=== PATIENT | male | born 1950 | race Caucasian/White ===

== ENCOUNTER → 2019-07-01 | Outpatient (CLI) | payer OTHER, MEDICARE ==
[~2019-07-01] MED LIST: ADULT LOW DOSE81 MG PO; AMITRIPTYLINE H10 M1 PO; CALCIUM 600 +1 EAC5 PO; CHLORTHALIDONE25 MG PO; CRESTOR20 MG PO; DOXYCYCLINE 10100 M1 PO; FINASTERIDE5 MG PO; FISH OIL 1,0001 EAC5 PO; GLUCOPHAGE1000 MG PO; GUAIFENESIN/COD10 M1 PO; HYDROCHLOROTHIA25 M2 PO; LEVOTHYROXIN0.137 M1 PO; LISINOPRIL20 MG PO; MAGNESIUM400 MG PO; NORCO 5-325 TA1 EACH PO; PERCOCET PO; SYNTHROID137 MCG PO; VITAMIN D-32000 UNIT PO; ZETIA10 MG PO; ZOFRAN ODT4 MG PO
== END ==
LOC: SJCVC 10:57
DX: I44.0 Atrioventricular block, first degree (principal); R94.31 Abnormal electrocardiogram [ECG] [EKG]; E78.00 Pure hypercholesterolemia, unspecified; I10 Essential (primary) hypertension; E11.9 Type 2 diabetes mellitus without complications; Z79.899 Other long term (current) drug therapy; Z82.49 Family history of ischemic heart disease and other diseases of the circulatory system

== ENCOUNTER → 2019-08-05 | Outpatient (CLI) | payer OTHER, MEDICARE | LOC: SJCVCIMAG 09:23 | DX: I10 Essential (primary) hypertension (principal); E78.00 Pure hypercholesterolemia, unspecified; Z82.49 Family history of ischemic heart disease and other diseases of the circulatory system ==

== ENCOUNTER → 2020-07-05 | Outpatient (CLI) | payer OTHER, MEDICARE | LOC: SJCVC 10:56 | PROVIDERS: ATTEND Internal Medicine Cardiovascular Disease | DX: R94.31 Abnormal electrocardiogram [ECG] [EKG] (principal); I44.0 Atrioventricular block, first degree; I10 Essential (primary) hypertension; E78.00 Pure hypercholesterolemia, unspecified; E11.9 Type 2 diabetes mellitus without complications; Z79.84 Long term (current) use of oral hypoglycemic drugs; Z79.899 Other long term (current) drug therapy; Z82.49 Family history of ischemic heart disease and other diseases of the circulatory system ==

== ENCOUNTER → 2020-09-09 | Outpatient (CLI) | payer OTHER, MEDICARE ==
[~2020-09-09] MED LIST changes: +ARICEPT10 MG PO; +ASPIRIN EC81 M1 PO; +BENICAR40 MG PO; +LEVOTHYROXINE125 MC1 PO; +NORVASC5 MG PO; +UBIQUINOL100 MG PO
[2020-09-09 11:11] LABS: URINE BILIRUBIN NEGATIVE (Negative); URINE BLOOD NEGATIVE (Negative); URINE CLARITY CLEAR; URINE COLOR YELLOW; URINE GLUCOSE-RANDOM* NEGATIVE (Negative); URINE KETONES NEGATIVE (Negative); URINE LEUKOCYTES-REFLEX NEGATIVE (Negative); URINE NITRITE-REFLEX NEGATIVE (Negative); URINE PROTEIN (DIPSTICK) NEGATIVE (Negative); URINE SPECIFIC GRAVITY 1.015 (1.005-1.035); URINE UROBILINOGEN 0.2 E.U./dl (0.2-1.0)
[2020-09-09 11:13] LABS: HEMATOCRIT 43.5 % (42.0-52.0); HEMOGLOBIN 14.6 gm/dL (14.0-18.0); MCH 29.8 pg (26.0-34.0); MCHC 33.6 g/dL (28.0-37.0); MCV 88.7 fL (80.0-100.0); RBC 4.91 mil/uL (4.50-6.00); RDW 14.5 % (10.5-14.5); WBC 4.9 thou/uL (4.0-11.0)
[2020-09-09 11:21] LABS: ALBUMIN 3.8 g/dL (3.4-5.0); CREATININE 0.8 mg/dL (0.7-1.3); POTASSIUM 4.3 mmol/L (3.5-5.1)
[2020-09-09 12:11] LABS: INR 0.92; PROTIME 10.1 Seconds (9.3-11.4)
[2020-09-10 00:06] LABS: GLYCOHEMOGLOBIN (HGB A1C) 6.2 % (4.8-5.6)
== END ==
LOC: LAB 08:31
PROVIDERS: ATTEND Orthopaedic Surgery
DX: Z01.812 Encounter for preprocedural laboratory examination (principal); Z20.822 Contact with and (suspected) exposure to COVID-19

== ENCOUNTER 2020-09-15 06:20 | Observation (INO) | payer OTHER, MEDICARE ==
[~2020-09-15] VITALS: Ht 177.8 cm; Wt 88.5 kg
[2020-09-15] VITALS (8 sets, daily range): BP systolic 126–142; BP diastolic 72–87
--- NOTE | ~2020-09-15 | O ---
[facility] [place] [address] OPERATIVE REPORT Name: MINNIE DELAROSA Room #: 444-P [facility] Danielle#: [id number] Admission: 09/15/20 Attend Phys: Marc Bruner MD Discharge: Date of : 50 Report #: [id number] THIS REPORT FOR: cc: Steve Cano MD, David A. MD Abraham,Marc Grullon MD ~ DATE OF SERVICE: 09/15/2020 PREOPERATIVE DIAGNOSIS: Left knee osteoarthritis. POSTOPERATIVE DIAGNOSIS: Left knee osteoarthritis. PROCEDURE: Left total knee arthroplasty using Navio robotic professional nursing assistant. SURGEON: Marc Bruner MD. CASE MONITOR: Nati Holloway PA-C. INDICATIONS FOR CASE MONITOR: Throughout the case, extensive retraction and manipulation of the knee was required. This was afforded to me by my professional nursing assistant. ANESTHESIA: LMA with adductor canal block. IMPLANTS: [employer] size 5 Journey II BCS cobalt chrome femur, size 5 tibia, size 11 constrained polyethylene and size 35 patella. TOURNIQUET TIME: 54 minutes. ESTIMATED BLOOD LOSS: 25 mL. COMPLICATIONS: None. SPECIMENS: None. CONDITION UPON LEAVING THE OPERATING ROOM: Stable. INDICATIONS FOR PROCEDURE: The patient is a 70-year-old gentleman with left knee osteoarthritis. He had failed conservative measures for this, and after discussion with him, he elected for left total knee arthroplasty. DESCRIPTION OF PROCEDURE: Risks, benefits, alternatives, complications were discussed in detail with the patient including but not limited to risk of anesthesia, risk of damage to nerves, arteries, blood vessels, risk for infection, bleeding, risk for continued knee pain, need for reoperation. Informed consent was obtained from the patient. Left knee was appropriately [facility] [address] [place] [address] OPERATIVE REPORT Name: MINNIE DELAROSA Room #: 444-P [facility] Georgie Santos#: [id number] Admission: 09/15/20 Attend Phys: Marc Bruner MD Discharge: Date of : 50 Report #: [id number] marked in the preoperative holding area. IV Ancef was given for preoperative antibiotics. He was brought to the operating room and placed in the supine position on the operating room table. LMA anesthesia was induced without complication. Tourniquet was placed on the left thigh. Left lower extremity was prepped and draped in normal sterile fashion. Timeout was performed properly identifying the patient and procedure as well as the instrumentation and implants. All in the operating room were in agreement. Standard midline approach to the knee was made with 10 blade through the skin. Dissection was taken down sharply to the fascia and deep flaps were developed medially and laterally. Fresh 10 blade was used to make a medial parapatellar arthrotomy and the knee was inspected. There was moderate tricompartmental osteoarthritis of the knee. ACL and PCL were removed sharply. Reference pins were placed in the femur and the tibia. The knee was then digitally mapped using the [employer] ASA robotic system. Intraoperative plan was made. We sized the size 5 femur with a size 5 tibia and a 10 spacer. After acceptance of the intraoperative plan, the distal femoral cut was made with a Navio bur. Distal femoral cutting block was pinned in place and chamfer cuts were made. After this, attention was turned to the tibia. Remainder of the menisci removed with Bovie cautery. Tibial resection guide was pinned in place using the Navio for placement and tibial resection was made. Flexion and extension gaps were then checked and found to have good balance in flexion and extension with slight laxity medially in extension. It was felt we could make up for this with a constrained implant. Tibia was sized, found to be a size 5. A size 5 tibial trial was placed, pinned and punched. A size 5 femoral trial was placed and box cut was made. This was then trialed with a size 10 and then a size 11 polyethylene. Size 11 polyethylene demonstrated 1 mm of laxity laterally. Throughout range of motion of the knee, he did have up to 3 mm medially in extension and again it was felt we could make up for this with a constrained implant. A 9 mm of bone was resected from the posterior surface of the patella and a size 35 patellar trial button was placed. Knee was taken through range of motion, found to be stable, found to have good patellar tracking. Trial components were removed. Bony ends were thoroughly irrigated in normal saline. A final size 5 tibia, size 5 Journey II BCS cobalt chrome femur and a size 35 patella were cemented in place using standard cementation techniques. While the cement cured, a periarticular injection consisting of morphine, ropivacaine, epinephrine, Toradol was placed around the knee joint capsule. After the cement cured, tourniquet was deflated. Hemostasis was obtained with Bovie cautery. Final size 11 constrained polyethylene was placed. A gram of vancomycin was placed deep in the joint. Fascia was closed with 0 Vicryl, skin was closed with 2-0 Vicryl, skin staple and a VIVI dressing was applied. The patient tolerated this procedure well and went to recovery room under care of anesthesia postoperatively. By: 1128 1200 Marc Bruner MD /louise
--- NOTE | 2020-09-15 13:33 | NUR ---
ASSESSMENT: CM REVIEWED CHART AND SPOKE WITH PT AND HIS WHO IS AT THE BEDSIDE. PT IS ALERT AND ORIENTED X4. PT IS S/P L TKA. PT REPORTS LIVING IN A SPLIT LEVEL HOME. PT REPORTS ABOUT 6-7 STEPS WITH HANDRAIL WHEN ENTERING THE GARAGE TO A LEVEL AND ANOTHER 6-7 STEPS WITH HANDRAILS TO THE BEDROOMS. PT HAS A CPAP MACHINE AT HOME. PT REPORTS THAT HE HAS NO DME AT HOME. CM DISCUSSED LIKELY NEED FOR A WALKER AT DISCHARGE AND PT REPORTS HE HAS NO PREFERENCE OF DME COMPANY. CM NOTIFIED PROVIDER PLUS PT MAY NEED A WALKER BUT AWAITING PT EVAL AT THIS TIME. PT REPORTS THAT HE HAS NOT HAD HH IN THE PAST. PT REPORTS THAT HE HAS OUTPATIENT THERAPY ARRANGED TO BEGIN ON SATURDAY AT [facility] IN [place]. CM DISCUSSED ROLE. PT DOES NOT ANTICIPATE HAVING ANY NEEDS FROM CM OTHER THEN A POSSIBLE WALKER. CM WILL CONTINUE TO FOLLOW TO ASSIST NEEDED.
--- NOTE | 2020-09-15 17:14 | NUR ---
PT ARRIVED TO FLOOR FROM RR PER CART AT 1130 IN STABLE CONDITION.ADMISSION HX, ASSESSMENT AND CAREPLAN COMPLETED.VSS.VIVI DRSG TO LEFT KNEE WITH POLAR PACK AND SCD'S IN PLACE.LUNCH GIVEN AND WELL TOLERATED.THERAPIST HERE TO WALK PT BUT UNABLE DUE TO LACK OF FEELINGS TO LEFT LOWER EXTREMITY FROM NERVE BLOCK. IV ATB GIVEN ORDERED. AT BS VISITING.NOVERBAL C/O. WILL CONTINUE TO MONITOR.
--- NOTE | 2020-09-16 03:54 | NUR ---
ASSUMED PT CARE AT 1900.PT [place] TO HIS R EAR.DRSG TO HIS L KNEE C/D/I WITH POLAR PACK IN PLACE.CPAP AT HS WITH CONT PULSE OX IN PLACE.URINAL AT BEDSIDE.PT ENCOURAGED TO USE HIS INCENTIVE SPIROMETER WHILE AWAKE.CALL LIGHT WITHIN REACH.
[2020-09-16 03:58] VITALS: BP 122/61
[2020-09-16 04:47] LABS: HEMATOCRIT 35.1 % (42.0-52.0); HEMOGLOBIN 11.6 gm/dL (14.0-18.0); MCH 29.4 pg (26.0-34.0); MCHC 33.2 g/dL (28.0-37.0); MCV 88.5 fL (80.0-100.0); RBC 3.96 mil/uL (4.50-6.00); RDW 14.1 % (10.5-14.5); WBC 12.7 thou/uL (4.0-11.0)
[2020-09-16 07:25] VITALS: BP 155/85
[2020-09-16 07:37] VITALS: BP 155/85
--- NOTE | 2020-09-16 10:56 | NUR ---
ASSUMED PT CARE THIS AM. PT HAS SURGERY YESTERDAY. PT HAS IV SITE ON L FA. PT HAS SCD, VIVI DRESSING AND POLAR PACK. PT USES CPAP @ NIGHT. PT IS ACCUCHECK ACHS. PT USES URINAL AND INCENTIVE SPIROMETER. PT HAD PT TODAY AND DID WELL ACCORDING TO PT. CALLED DR WERNER IN REGARDS DISCHARGE PENDING. INFORMED AND EDUCATED PT AND PT ABOUT DISCHARGE INTRUCTIONS, MEDICATION AND WHEN TO FOLLOW UP. PT AT THE BEDSIDE. SIGNED DISCHARGED FORM AND REMOVED IV. WHEEL PT DOWN. PT DISCHARGED TODAY.
--- NOTE | 2020-09-16 13:37 | NUR ---
ON-GOING ASSESSMENT: PT PROGRESSED WELL WITH THERAPIES AND CLEATED TO DISCHARGE HOME. PROVIDER PLUS [employer] DELIVERED WALKER AND CM PROVIDED HER WITH SCRIPT. PT REPORTS NO FURTHER NEEDS FROM CM.
== END 2020-09-16 11:06 | disposition home or self-care (01) ==
LOC: TBA 06:20 → OR 06:20 → 4S 11:53 → OR 11:53 → 4S 09-16 11:06
PROVIDERS: ADMIT Orthopaedic Surgery; ATTEND Orthopaedic Surgery
DX: M17.12 Unilateral primary osteoarthritis, left knee (principal); J06.9 Acute upper respiratory infection, unspecified; S20.219A Contusion of unspecified front wall of thorax, initial encounter; X58.XXXA Exposure to other specified factors, initial encounter; Y93.89 Activity, other specified; Y92.89 Other specified places as the place of occurrence of the external cause; Y99.8 Other external cause status
CPT/HCPCS: 50010; 50101; 50415; 50954; 51130; 51225; 51320; 51412; 53078; 56527; 56528; 57095; 57103; 57104; 57110; 57127; 57180; 58239; 62110; 62900; 64043; 65060; 70005

== ENCOUNTER → 2021-01-09 | Outpatient (CLI) | payer OTHER, MEDICARE | LOC: SJCVCIMAG 08:18 | PROVIDERS: ATTEND Internal Medicine Cardiovascular Disease | DX: I10 Essential (primary) hypertension (principal); R06.00 Dyspnea, unspecified; R53.83 Other fatigue; E78.5 Hyperlipidemia, unspecified; E78.00 Pure hypercholesterolemia, unspecified; E11.9 Type 2 diabetes mellitus without complications; Z79.84 Long term (current) use of oral hypoglycemic drugs; Z79.899 Other long term (current) drug therapy; Z82.49 Family history of ischemic heart disease and other diseases of the circulatory system ==